=== PATIENT | male | born 1960 | race Caucasian/White ===

== ENCOUNTER → 2017-05-13 | Outpatient (CLI) | payer BC | LOC: COL.RAD 09:41 | DX: N21.0 Calculus in bladder (principal); N32.89 Other specified disorders of bladder; K76.0 Fatty (change of) liver, not elsewhere classified; M43.16 Spondylolisthesis, lumbar region; K42.9 Umbilical hernia without obstruction or gangrene; Z98.890 Other specified postprocedural states | CPT/HCPCS: Q9967 ==

== ENCOUNTER 2017-06-03 11:35 | Observation (INO) | payer OTHER ==
[2017-06-03] VITALS (10 sets, daily range): BP systolic 106–141; BP diastolic 50–73; PULSE 45–80; TEMP 97–97.8
[~2017-06-03] VITALS: Ht 172.7 cm; Wt 128.7 kg
[2017-06-03] MEDS ORDERED: LIPITOR20 MG PO (12:44)
[2017-06-03] MEDS ORDERED: ZYRTEC 10MG10 MG PO (12:45)
[2017-06-03] MEDS ORDERED: ASPIRIN E.C. 8181 MG PO (12:45)
[2017-06-04] VITALS (7 sets, daily range): BP systolic 110–122; BP diastolic 63–67; PULSE 64–79; TEMP 96.5–100.6
[2017-06-04 06:48] LABS: HEMATOCRIT 44.3 % (42.0-52.0); HEMOGLOBIN 14.8 g/dl (13.5-18.0); MEAN CELL VOLUME 92 fl (80.0-100.0); MEAN CORPUSCULAR HEMOGLOBIN 31 pg (27.0-31.0); MEAN CORPUSCULAR HGB CONC 33 g/dl (33.0-37.0); MEAN PLATELET VOLUME 9.5 fl (7.4-10.4); PLATELET COUNT 223 K/mm3 (130-400); REDCELL DISTRIBUTION WIDTH-CV 13.1 % (11.5-14.5)
[2017-06-05 02:12] VITALS: BP 112/49; PULSE 59; TEMP 98.2
[2017-06-05 05:18] VITALS: BP 107/67; PULSE 54; TEMP 98.4
[2017-06-05 09:21] VITALS: BP 113/60; PULSE 60; TEMP 97.9
[2017-06-05 13:25] VITALS: BP 103/83; PULSE 64; TEMP 97.7
== END 2017-06-05 18:00 | disposition home or self-care (01) ==
LOC: SDCO 11:35 → SURG 16:20 → SDCO 06-04 14:00 → SURG 06-04 14:00
PROVIDERS: Urology
DX: C61 Malignant neoplasm of prostate (principal); N21.0 Calculus in bladder; E78.00 Pure hypercholesterolemia, unspecified; E66.01 Morbid (severe) obesity due to excess calories; N40.0 Benign prostatic hyperplasia without lower urinary tract symptoms; Z87.891 Personal history of nicotine dependence; Z87.442 Personal history of urinary calculi; Z83.3 Family history of diabetes mellitus; Z82.49 Family history of ischemic heart disease and other diseases of the circulatory system
CPT/HCPCS: OP; G0378; J0690; J2250; J2704; J3010; J7120

== ENCOUNTER 2018-04-05 15:42 | Outpatient (RCR) | payer OTHER ==
[~2018-04-05 15:42] MED LIST: ASPIRIN E.C. 8181 MG PO; LIPITOR20 MG PO; ZYRTEC 10MG10 MG PO
== END 2018-07-04 | disposition home or self-care (01) ==
LOC: WSOH
DX: S60.222A Contusion of left hand, initial encounter (principal); W27.8XXA Contact with other nonpowered hand tool, initial encounter; Y92.59 Other trade areas as the place of occurrence of the external cause; Y99.0 Civilian activity done for income or pay; Z79.899 Other long term (current) drug therapy; Z87.891 Personal history of nicotine dependence